=== PATIENT | male | born 1940 | race Caucasian/White ===

== ENCOUNTER 2020-02-18 07:52 | Day surgery (SDC) | payer MEDICARE, BC ==
[2020-02-14 11:49] LABS: BASOPHILS # (AUTO) 0.1 X10'3 (0-0.2); BASOPHILS % (AUTO) 1.2 % (0-1); EOSINOPHILS # (AUTO) 0.1 X10'3 (0-0.9); EOSINOPHILS % (AUTO) 1.1 % (0-6); LYMPHOCYTES % (AUTO) 15.8 % (21-51); MEAN CORPUSCULAR HGB CONC 34.7 g/dL (33.0-36.5); MEAN CORPUSCULAR VOLUME 86.2 FL (78-98); MEAN PLATELET VOLUME 8.9 FL (7.4-10.4); MONOCYTES # (AUTO) 0.6 X10'3 (0-0.9); MONOCYTES % (AUTO) 8.9 % (2-12); NEUTROPHILS # (AUTO) 4.8 X10'3 (1.8-7.7); PRE OP HEMATOCRIT 46.6 % (42.0-52.0); PRE OP HEMOGLOBIN 16.2 g/dL (14.0-17.9); PRE OP PLATELET COUNT 153 X10'3 (140-440); RED BLOOD COUNT 5.41 X10'6 (4.70-6.10)
[2020-02-14 12:04] LABS: PRE OP INR 1.1 INR; PRE OP PROTIME 10.9 SECONDS (9.0-12.0)
[2020-02-14 12:07] LABS: ALBUMIN 4.3 G/DL (3.4-5.0); ALKALINE PHOSPHATASE 91 IU/L (46-116); BLOOD UREA NITROGEN 28 MG/DL (7-18); BUN/CREATININE RATIO 23.3 (5.4-32.0); CALCIUM 9.4 MG/DL (8.5-10.1); CHLORIDE 104 MMOL/L (99-107); PRE OP ALT 31 U/L (30-65); PRE OP ANION GAP 9 (8-16); PRE OP AST 23 U/L (10-37); PRE OP BILIRUB, TOTAL 0.4 MG/DL (0.0-1.0); PRE OP GLUCOSE 96 MG/DL (70-104); PRE OP POTASSIUM 4.2 MMOL/L (3.4-5.1); PRE OP SODIUM 138 MMOL/L (135-145); TOTAL CARBON DIOXIDE 24.6 MMOL/L (24-32); TOTAL PROTEIN 8.7 G/DL (6.4-8.2); eGFR 58 ML/MIN
[2020-02-14 13:24] LABS: PLATELET FUNCTION (ADP) 90 SECONDS (63-104)
[~2020-02-18] VITALS: Ht 170.2 cm; Wt 72.6 kg
[2020-02-18] VITALS (13 sets, daily range): BP systolic 134–165; BP diastolic 67–90
[~2020-02-18 07:52] MED LIST: LIDOcaine 1% W/epiNEPHrine 1:100,000 20ml vial ONE; SIMV-45 PO; cefTAZidime 1gm inj ONE; cocaine 4% topical solution 4ml bottle ONE; famotidine 20mg tablet PO ONE; methylPREDNISolone acetate 80mg/ml inj**IM only ONE; mupirocin 2% ointment 22GM ONE; oxymetazoline 15 ML nasal spray NS ONE; ringers solution, lacted 1,000 ML IV SCH
[2020-02-18] MEDS ORDERED: midazolam 2 mg/2 ml injection ONE (10:24)
[2020-02-18] MEDS ORDERED: LIDOcaine 2% (20mg/ml) 5ml vial ONE (10:24)
[2020-02-18] MEDS ORDERED: propofol inj 20 ML IV ONE (10:24)
[2020-02-18] MEDS ORDERED: fentaNYL/PF 50MCG/1 ML 2ML syringe ONE (10:24)
[2020-02-18] MEDS ORDERED: ondansetron/PF 4mg/2ml inj ONE (10:25)
[2020-02-18] MEDS ORDERED: sevoflurane 250ml liquid IH ONE (10:32)
[2020-02-18] MEDS ORDERED: dexamethasone sod phosphate 10mg/ml inj ONE (10:32)
[2020-02-18] MEDS ORDERED: labetalol 20mg/4ml (5mg/ml) syringe IV PRN (10:35)
[2020-02-18] MEDS ORDERED: fentaNYL/PF 50MCG/1 ML 2ML syringe IV PRN ×2 (10:35)
[2020-02-18] MEDS ORDERED: morphine 4 MG/ML inj SYRINge IV PRN (10:35)
[2020-02-18] MEDS ORDERED: ondansetron/PF 4mg/2ml inj IV PRN (10:35)
[2020-02-18] MEDS ORDERED: morphine 2 MG/ML inj. syringe IV PRN (10:35)
[2020-02-18] MEDS ORDERED: ringers solution, lacted 1,000 ML IV SCH (10:35)
[2020-02-18] MEDS ORDERED: hydrALAZINE 20mg/ml inj. IV PRN (10:35)
[2020-02-18] MEDS ORDERED: oxymetazoline 15 ML nasal spray NS SCH (12:24)
[2020-02-18] MEDS ORDERED: salt irrigation nasal spray 45 ML SPRAY NS PRN (12:25)
[2020-02-18] MEDS ORDERED: mupirocin 2% ointment 22GM TP SCH (13:00)
--- NOTE | 2020-02-18 13:42 | NUR ---
PT UP AND ABLE TO AMBULATE SAFELY, PT VOIDED APPROX 200 ML OF YELLOW URINE. D/C INSTRUCTIONS GIVEN AND GONE OVER W/PT WHO VERBALIZED AND DEMONSTRATED UNDERSTANDING, OCEAN SPAY AND MUPIROCIN OINTMENT APPLIED TO BOTH NARES. PT D/CD TO HOME VIA W/C TO PRIVATE VEHICLE W/O INCIDENT. Addendum: 02/18/20 at 1351 by Amber Granados RN Amended: Links added.
== END 2020-02-18 13:42 | disposition home or self-care (01) ==
LOC: PAS 07:52
PROVIDERS: ATTEND Otolaryngology
DX: J32.8 Other chronic sinusitis (principal); J34.89 Other specified disorders of nose and nasal sinuses; Z79.899 Other long term (current) drug therapy; Z20.828 Contact with and (suspected) exposure to other viral communicable diseases; Z79.01 Long term (current) use of anticoagulants; Z98.890 Other specified postprocedural states
CPT/HCPCS: 31254; 31267; 31276; 36415; 61782; 80053; 82948; 85025; 85576; 85610; 85730; 87070; 87075; 87102; 87635; 93005; A6402; C9250; C9803; J0360; J0713; J1100; J2001; J2250; J2405; J2704; J3010; J7040; J7120; 87077; 87186; A4618; A7000; J1040